=== PATIENT | female | born 1995 | race Caucasian/White ===

== ENCOUNTER 2019-01-04 23:25 | Inpatient (IN) | payer BC ==
[2019-01-04] MEDS ORDERED: Misoprostol 200 MCG Tab PO PRN (23:41)
[2019-01-04] MEDS ORDERED: Ondansetron 4 MG/2 ML SDV IVPUSH PRN (23:41)
[2019-01-04] MEDS ORDERED: Sodium Chloride 0.9% 10 ML SDV FLUSH PRN (23:41)
[2019-01-04] MEDS ORDERED: Lidocaine 1% 50 ML MDV INJECT PRN (23:41)
[2019-01-04] MEDS ORDERED: Sodium Chloride 0.9% 2.5 ML Syringe FLUSH PRN (23:41)
[2019-01-04] MEDS ORDERED: Sodium Chloride 0.9% 10 ML Syringe FLUSH PRN (23:41)
[2019-01-04] MEDS ORDERED: Carboprost Tromethamine 250 MCG/1 ML Amp IM PRN (23:41)
[2019-01-04] MEDS ORDERED: Water For Irrigation,Sterile 1,000 ML Container IRR PRN (23:41)
[2019-01-04] MEDS ORDERED: Methylergonovine 0.2 MG/1 ML Amp IM PRN (23:41)
[2019-01-04] MEDS ORDERED: Tranexamic Acid 1,000 MG in Sodium Chloride 0.9% 100 ML IV PRN (23:41)
[2019-01-04] MEDS ORDERED: Oxytocin/0.9 % Sodium Chloride 30 UNIT/500 ML BAG IV SCH ×2 (23:45)
[2019-01-04] MEDS ORDERED: Terbutaline 1 MG/ML SDV SUBCUT PRN (23:45)
[2019-01-05] MEDS: Misoprostol 25 MCG (1/4 of 100 MCG) Tab VAG PRN ×2 (00:24→04:32)
[2019-01-05] MEDS: Lactated Ringers 1,000 ML IV SCH ×3 (04:48→19:15)
[2019-01-05] MEDS: Butorphanol 1 MG/ML SDV IVPUSH PRN ×2 (06:53→08:43)
--- NOTE | 2019-01-05 09:21 | PCM.PREANE ---
Preanesthetic Assessment - Anesthesia/Transfusion/Family Hx Anesthesia History: Prior Anesthesia Without Reaction Family History of Anesthesia Reaction: No Transfusion History: No Prior Transfusion(s) Type of Transfusion Reactions: Reports: Unknown - Review of Systems General: No Symptoms Pulmonary: No Symptoms Cardiovascular: No Symptoms Gastrointestinal: No Symptoms Neurological: No Symptoms Other: Reports: None - Physical Assessment Height: 5 ft 6 in Weight: 119.295 kg ASA Class: 2 Mental Status: Alert & Oriented x3 Airway Class: Mallampati = 2 Dentition: Reports: Normal Dentition Thyro-Mental Finger Breadths: 3 Mouth Opening Finger Breadths: 3 ROM/Head Extension: Full Lungs: Clear to Auscultation, Normal Respiratory Effort Cardiovascular: Regular Rate, Regular Rhythm - Lab Values: Laboratory Last Values WBC 12.65 K/uL (4.0-11.0) H 01/05/19 00:10 RBC 4.21 M/uL (4.30-5.90) L 01/05/19 00:10 Hgb 11.3 g/dL (12.0-16.0) L 01/05/19 00:10 Hct 34.2 % (36.0-46.0) L 01/05/19 00:10 MCV 81.2 fL (80.0-98.0) 01/05/19 00:10 MCH 26.8 pg (27.0-32.0) L 01/05/19 00:10 MCHC 33.0 g/dL (31.0-37.0) 01/05/19 00:10 RDW Std Deviation 40.2 fl (28.0-62.0) 01/05/19 00:10 RDW Coeff of Stephen 14 % (11.0-15.0) 01/05/19 00:10 Plt Count 254 K/uL (150-400) 01/05/19 00:10 MPV 11.60 fL (7.40-12.00) 01/05/19 00:10 Nucleated RBC % 0.0 /100WBC 01/05/19 00:10 Nucleated RBCs # 0 K/uL 01/05/19 00:10 Blood Type A POSITIVE 01/05/19 00:10 Antibody Screen NEGATIVE 01/05/19 00:10 - Allergies Allergies/Adverse Reactions: Allergies Allergy/AdvReac Type Severity Reaction Status Date / Time No Known Allergies Allergy Verified 01/04/19 23:39 - Acknowledgements Anesthesia Type Planned: Epidural Pt an Appropriate Candidate for the Planned Anesthesia: Yes Alternatives and Risks of Anesthesia Discussed w Pt/Guardian: Yes Pt/Guardian Understands and Agrees with Anesthesia Plan: Yes PreAnesthesia Questionnaire HEENT History: Reports: None Cardiovascular History: Reports: Hypertension Respiratory History: Reports: None Gastrointestinal History: Reports: GERD Genitourinary History: Reports: None [employer] History: Reports: : 1 Para: 0 LMP (Approximate): Musculoskeletal History: Reports: None Neurological History: Reports: None Psychiatric History: Reports: None Endocrine/Metabolic History: Reports: Obesity/BMI 30+ Hematologic History: Reports: Anemia Immunologic History: Reports: None Oncologic (Cancer) History: Reports: None Dermatologic History: Reports: None - Infectious Disease History Infectious Disease History: Reports: Chicken Pox - Past Surgical History Head Surgeries/Procedures: Reports: None HEENT Surgical History: Reports: None Cardiovascular Surgical History: Reports: None Respiratory Surgical History: Reports: None GI Surgical History: Reports: None Female Surgical History: Reports: None Endocrine Surgical History: Reports: None Neurological Surgical History: Reports: None Oncologic Surgical History: Reports: None Dermatological Surgical History: Reports: None - SUBSTANCE USE Smoking Status *Q: Never Smoker Recreational Drug Use History: No - HOME MEDS Home Medications: Home Meds Acetaminophen [Tylenol] 325 mg PO 01/04/19 [History] PNV #116/Iron Fumarate/FA/DHA [Expecta Combo Pack] 01/04/19 [History] - CURRENT (IN HOUSE) MEDS Current Meds: Current Medications Butorphanol Tartrate (Stadol) 1 mg IVPUSH Q1H PRN PRN Reason: Pain Last Admin: 01/05/19 08:43 Dose: 1 mg Carboprost Tromethamine (Hemabate Ds) 250 mcg IM ASDIRECTED PRN PRN Reason: Post Hemorrhage Lactated Ringer's (Ringers, Lactated) 1,000 mls @ 150 mls/hr IV ASDIRECTED NEY Last Admin: 01/05/19 04:48 Dose: 150 mls/hr Oxytocin/Sodium Chloride (Oxytocin 30 Unit/500 Ml-Ns) 30 unit in 500 mls @ 999 mls/hr IV TITRATE NEY Oxytocin/Sodium Chloride (Oxytocin 30 Unit/500 Ml-Ns) 30 unit in 500 mls @ 2 mls/hr IV TITRATE NEY; Protocol Last Titration: 01/05/19 07:03 Dose: 10 munits/min, 10 mls/hr Tranexamic Acid 1,000 mg/ (Sodium Chloride) 110 mls @ 660 mls/hr IV ONETIME PRN PRN Reason: Bleeding Lidocaine HCl (Xylocaine 1%) 50 ml INJECT ONETIME PRN PRN Reason: Laceration repair Methylergonovine Maleate (Methergine) 0.2 mg IM ASDIRECTED PRN PRN Reason: Post Hemorrhage Misoprostol (Cytotec) 200 mcg PO ONETIME PRN PRN Reason: Post Hemorrhage Misoprostol (Cytotec) 25 mcg VAG Q4H PRN PRN Reason: Cervical Ripening Last Admin: 01/05/19 00:24 Dose: 25 mcg Ondansetron HCl (Zofran) 4 mg IVPUSH Q6H PRN PRN Reason: Nausea/Vomiting Sodium Chloride (Saline Flush) 10 ml FLUSH ASDIRECTED PRN PRN Reason: Keep Vein Open Sodium Chloride (Saline Flush) 2.5 ml FLUSH ASDIRECTED PRN PRN Reason: Keep Vein Open Sodium Chloride (Normal Saline) 10 ml FLUSH ASDIRECTED PRN PRN Reason: IV Use Sterile Water (Sterile Water For Irrigation) 1,000 ml IRR ASDIRECTED PRN PRN Reason: delivery Terbutaline Sulfate (Brethine) 0.25 mg SUBCUT ASDIRECTED PRN PRN Reason: Tacysystole
[2019-01-05] MEDS ORDERED: Labetalol 20 MG/4 ML Syringe IVPUSH ONE (09:27)
[2019-01-05] MEDS ORDERED: Magnesium Sulfate/Water 4 GM in Premix Bag 1 BAG IV ONE (10:10)
[2019-01-05] MEDS ORDERED: Calcium Gluconate 10% 1 GM/10 ML SDV IV PRN (10:10)
[2019-01-05] MEDS ORDERED: Magnesium Sulfate/Water 20 GM/500 ML BAG IV SCH (11:00)
[2019-01-05 11:36] LABS: CHLORIDE,CL 105 mmol/L (98-107); SODIUM,NA 139 mmol/L (136-145)
[2019-01-05] MEDS ORDERED: Bupivacaine 0.25% 10 ML SDV ONE (19:06)
[2019-01-05] MEDS ORDERED: Acetaminophen 500 MG Tab PO PRN ×2 (22:33)
[2019-01-05] MEDS ORDERED: Benzocaine/Menthol 20%-0.5% Spray 78 GM Cannister TOP PRN (22:33)
[2019-01-05] MEDS ORDERED: Sodium Chloride 0.9% 10 ML SDV IV PRN (22:33)
[2019-01-05] MEDS ORDERED: Bisacodyl 10 MG Supp RECTAL PRN (22:33)
[2019-01-05] MEDS ORDERED: Docusate Sodium 100 MG Cap PO PRN (22:33)
[2019-01-05] MEDS ORDERED: Calcium Gluconate 10% 1 GM/10 ML SDV IVPUSH PRN (22:33)
[2019-01-05] MEDS ORDERED: Sodium Chloride 0.9% 10 ML Syringe FLUSH PRN (22:33)
[2019-01-05] MEDS ORDERED: Lanolin 100% Cream 7 GM Tube TOP PRN (22:33)
[2019-01-05] MEDS ORDERED: Sodium Chloride 0.9% 2.5 ML Syringe FLUSH PRN (22:33)
[2019-01-05] MEDS ORDERED: Witch Hazel Medicated Pads 40/Jar TOP PRN (22:33)
[2019-01-05] MEDS ORDERED: Lactated Ringers 1,000 ML IV SCH (22:45)
--- NOTE | 2019-01-06 08:11 | PCM48HPAN ---
Post Anesthesia Note - EVALUATION WITHIN 48HRS OF ANESTHETIC Vital Signs in Normal Range: Yes Patient Participated in Evaluation: Yes Respiratory Function Stable: Yes Airway Patent: Yes Cardiovascular Function Stable: Yes Hydration Status Stable: Yes Pain Control Satisfactory: Yes Nausea and Vomiting Control Satisfactory: Yes Mental Status Recovered: Yes Resp Rate: 18
[2019-01-06] MEDS: Enoxaparin 40 MG/0.4 ML Syringe SUBCUT SCH (09:29)
[2019-01-06] MEDS: Magnesium Sulfate/Water 20 GM/500 ML BAG IV SCH ×2 (09:48→20:15)
--- NOTE | 2019-01-06 11:15 | PCM.DEL ---
L & D Note - General Info Date of Service: 01/05/19 - Delivery Note Cervical Ripening Method: Misoprostil, Other (see below) (Labor induction by Dr Colvin. Please see her documentation.) Delivery Outcome: Livebirth Delivery Method: Spontaneous Vaginal Delivery-Single Infant Delivery Mode: Spontaneous Presentation: Right Occiput Posterior (ROP) Nuchal Cord: Present, Reduced (Loose nuchal cord x2. Unraveled at deliery.) Anesthesia Type: Epidural Amniotic Fluid Description: Clear Episiotomy Type: None Laceration: 2nd Degree Suture type: Vicryl Suture size: 3-0 (3-0 and 4-0 Vicryl used for repair.) Placenta: Intact, Spontaneous Estimated Blood Loss: 250 Resuscitation Needed: No Provider: keyla (Dr Colvin) Post Delivery Events: Other (see below) (Mag sulfate prior to delivery due to pre-eclampsia with severe features, and continued post-.) Delivery Comments (Free Text/Narrative):: See trace view for more information. - General Info Date of Service: 01/05/19 - Patient Data Vitals - Most Recent: Last Vital Signs Temp 36.9 C 01/06/19 06:00 Pulse 104 H 01/06/19 07:00 Resp 18 01/06/19 08:11 BP 132/63 01/06/19 07:00 Pulse Ox 98 01/06/19 07:00 Weight - Most Recent: 119.295 kg I&O - Last 24 Hours: Intake & Output 01/05/19 01/06/19 01/06/19 22:59 06:59 14:59 Intake Total 0 210 30 Output Total 88 1515 260 Balance -88 -1305 -230 Lab Results Last 24 Hours: Laboratory Results - last 24 hr 01/05/19 01/05/19 01/05/19 Range/Units 10:35 10:35 16:50 WBC 14.34 H (4.0-11.0) K/uL RBC 4.28 L (4.30-5.90) M/uL Hgb 11.2 L (12.0-16.0) g/dL Hct 34.7 L (36.0-46.0) % MCV 81.1 (80.0-98.0) fL MCH 26.2 L (27.0-32.0) pg MCHC 32.3 (31.0-37.0) g/dL RDW Std Deviation 40.6 (28.0-62.0) fl RDW Coeff of Stephen 14 (11.0-15.0) % Plt Count 250 (150-400) K/uL MPV 12.40 H (7.40-12.00) fL Nucleated RBC % 0.0 /100WBC Nucleated RBCs # 0 K/uL Sodium 139 (136-145) mmol/L Potassium 3.7 (3.5-5.1) mmol/L Chloride 105 (98-107) mmol/L Carbon Dioxide 22.6 (21.0-32.0) mmol/L BUN 11 (7.0-18.0) mg/dL Creatinine 0.7 (0.6-1.0) mg/dL Est Cr Clr Drug Dosing 118.01 mL/min Estimated GFR (MDRD) > 60.0 ml/min Glucose 99 (74-106) mg/dL Uric Acid 4.5 (2.6-7.2) mg/dL Calcium 8.7 (8.5-10.1) mg/dL Magnesium 1.5 L 3.9 H (1.8-2.4) mg/dL Total Bilirubin 0.2 (0.2-1.0) mg/dL AST 14 L (15-37) IU/L ALT 13 L (14-63) IU/L Alkaline Phosphatase 123 H (46-116) U/L Total Protein 6.8 (6.4-8.2) g/dL Albumin 2.0 L (3.4-5.0) g/dL Globulin 4.8 H (2.6-4.0) g/dL Albumin/Globulin Ratio 0.4 L (0.9-1.6) 01/05/19 01/06/19 Range/Units 23:36 05:44 WBC (4.0-11.0) K/uL RBC (4.30-5.90) M/uL Hgb (12.0-16.0) g/dL Hct (36.0-46.0) % MCV (80.0-98.0) fL MCH (27.0-32.0) pg MCHC (31.0-37.0) g/dL RDW Std Deviation (28.0-62.0) fl RDW Coeff of Stephen (11.0-15.0) % Plt Count (150-400) K/uL MPV (7.40-12.00) fL Nucleated RBC % /100WBC Nucleated RBCs # K/uL Sodium (136-145) mmol/L Potassium (3.5-5.1) mmol/L Chloride (98-107) mmol/L Carbon Dioxide (21.0-32.0) mmol/L BUN (7.0-18.0) mg/dL Creatinine (0.6-1.0) mg/dL Est Cr Clr Drug Dosing mL/min Estimated GFR (MDRD) ml/min Glucose (74-106) mg/dL Uric Acid (2.6-7.2) mg/dL Calcium (8.5-10.1) mg/dL Magnesium 4.5 H 4.6 H (1.8-2.4) mg/dL Total Bilirubin (0.2-1.0) mg/dL AST (15-37) IU/L ALT (14-63) IU/L Alkaline Phosphatase (46-116) U/L Total Protein (6.4-8.2) g/dL Albumin (3.4-5.0) g/dL Globulin (2.6-4.0) g/dL Albumin/Globulin Ratio (0.9-1.6) Med Orders - Current: Current Medications Acetaminophen (Tylenol Extra Strength) 500 mg PO Q4H PRN PRN Reason: Pain Acetaminophen (Tylenol Extra Strength) 1,000 mg PO Q4H PRN PRN Reason: Pain Last Admin: 01/06/19 09:28 Dose: 1,000 mg Benzocaine/Menthol (Dermoplast Pain Relief 20%-0.5% Norphlet) 78 gm TOP ASDIRECTED PRN PRN Reason: Perineal Comfort Measure Last Admin: 01/06/19 08:23 Dose: 1 can Bisacodyl (Dulcolax) 10 mg RECTAL ONETIME PRN PRN Reason: Constipation Calcium Gluconate (Calcium Gluconate) 1 gm IVPUSH ASDIRECTED PRN PRN Reason: respiratory distress Docusate Sodium (Colace) 100 mg PO BID PRN PRN Reason: Constipation Emollient Ointment (Lansinoh Hpa) 0 gm TOP ASDIRECTED PRN PRN Reason: Sore Nipples Enoxaparin Sodium (Lovenox) 40 mg SUBCUT Q24H [facility] Last Admin: 01/06/19 09:29 Dose: 40 mg Lactated Ringer's (Ringers, Lactated) 1,000 mls @ 30 mls/hr IV ASDIRECTED NEY Magnesium Sulfate (Magnesium Sulfate 20 Gm In Water 500 Ml) 20 gm in 500 mls @ 50 mls/hr IV ASDIRECTED NEY Last Admin: 01/06/19 09:48 Dose: 2 gm/hr, 50 mls/hr Sodium Chloride (Saline Flush) 10 ml FLUSH ASDIRECTED PRN PRN Reason: Keep Vein Open Sodium Chloride (Saline Flush) 2.5 ml FLUSH ASDIRECTED PRN PRN Reason: Keep Vein Open Sodium Chloride (Normal Saline) 10 ml IV ASDIRECTED PRN PRN Reason: IV Use Witch Anuradha (Tucks) 1 pad TOP ASDIRECTED PRN PRN Reason: comfort care Last Admin: 01/06/19 08:22 Dose: 1 tub Discontinued Medications Bupivacaine HCl (Sensorcaine-Mpf 0.25%) Confirm Administered Dose 10 ml .ROUTE .[facility]-MED ONE Stop: 01/05/19 19:07 Butorphanol Tartrate (Stadol) 1 mg IVPUSH Q1H PRN PRN Reason: Pain Last Admin: 01/05/19 08:43 Dose: 1 mg Calcium Gluconate (Calcium Gluconate) 1 gm IV ASDIRECTED PRN PRN Reason: respiratory distress Carboprost Tromethamine (Hemabate Ds) 250 mcg IM ASDIRECTED PRN PRN Reason: Post Hemorrhage Enoxaparin Sodium (Lovenox) 40 mg SUBCUT Q24H [facility] Lactated Ringer's (Ringers, Lactated) 1,000 mls @ 150 mls/hr IV ASDIRECTED [facility] Last Admin: 01/05/19 19:15 Dose: 30 mls/hr Oxytocin/Sodium Chloride (Oxytocin 30 Unit/500 Ml-Ns) 30 unit in 500 mls @ 999 mls/hr IV TITRATE [facility] Last Admin: 01/05/19 22:10 Dose: 999 mls/hr Oxytocin/Sodium Chloride (Oxytocin 30 Unit/500 Ml-Ns) 30 unit in 500 mls @ 2 mls/hr IV TITRATE [facility]; Protocol Last Titration: 01/05/19 22:10 Dose: 0 munits/min, 0 mls/hr Tranexamic Acid 1,000 mg/ (Sodium Chloride) 110 mls @ 660 mls/hr IV ONETIME PRN PRN Reason: Bleeding Fentanyl/Bupivacaine HCl ([id number]-[id number]-Rn 2 Mcg/Ml-0.125%) Confirm Administered Dose 100 mls @ as directed .ROUTE .[facility]-MED ONE Stop: 01/05/19 09:24 Magnesium Sulfate 4 gm/ Premix 100 mls @ 300 mls/hr IV BOLUS ONE Stop: 01/05/19 10:29 Last Admin: 01/05/19 11:47 Dose: 300 mls/hr Magnesium Sulfate (Magnesium Sulfate 20 Gm In Water 500 Ml) 20 gm in 500 mls @ 50 mls/hr IV ASDIRECTED NEY; Protocol Fentanyl/Bupivacaine HCl (Syjohbmw-Rzczr-Hk 2 Mcg/Ml-0.125%) Confirm Administered Dose 100 mls @ as directed .ROUTE .[facility]-MED ONE Stop: 01/05/19 19:06 Labetalol HCl (Normodyne) 20 mg IVPUSH ONETIME ONE; Protocol Stop: 01/05/19 09:28 Lidocaine HCl (Xylocaine 1%) 50 ml INJECT ONETIME PRN PRN Reason: Laceration repair Methylergonovine Maleate (Methergine) 0.2 mg IM ASDIRECTED PRN PRN Reason: Post Hemorrhage Misoprostol (Cytotec) 200 mcg PO ONETIME PRN PRN Reason: Post Hemorrhage Misoprostol (Cytotec) 25 mcg VAG Q4H PRN PRN Reason: Cervical Ripening Last Admin: 01/05/19 00:24 Dose: 25 mcg Ondansetron HCl (Zofran) 4 mg IVPUSH Q6H PRN PRN Reason: Nausea/Vomiting Sodium Chloride (Saline Flush) 10 ml FLUSH ASDIRECTED PRN PRN Reason: Keep Vein Open Sodium Chloride (Saline Flush) 2.5 ml FLUSH ASDIRECTED PRN PRN Reason: Keep Vein Open Sodium Chloride (Normal Saline) 10 ml FLUSH ASDIRECTED PRN PRN Reason: IV Use Sterile Water (Sterile Water For Irrigation) 1,000 ml IRR ASDIRECTED PRN PRN Reason: delivery Terbutaline Sulfate (Brethine) 0.25 mg SUBCUT ASDIRECTED PRN PRN Reason: Tacysystole - Problem List Review Problem List Initiated/Reviewed/Updated: No - My Orders Last 24 Hours: My Active Orders 01/05/19 22:33 Bedrest Bathroom Privileges [RC] ASDIRECTED RT Incentive Spirometry [RC] Q1HWA Vital Signs [RC] Q30M Acetaminophen [Tylenol Extra Strength] 1,000 mg PO Q4H PRN Acetaminophen [Tylenol Extra Strength] 500 mg PO Q4H PRN Benzocaine/Menthol [Dermoplast Pain Relief 20%-0.5% Norphlet] 78 gm TOP ASDIRECTED PRN Bisacodyl [Dulcolax] 10 mg RECTAL ONETIME PRN Calcium Gluconate 1 gm IVPUSH ASDIRECTED PRN Docusate Sodium [Colace] 100 mg PO BID PRN Lanolin [Lansinoh HPA] See Dose Instructions TOP ASDIRECTED PRN Sodium Chloride 0.9% [Normal Saline] 10 ml IV ASDIRECTED PRN Sodium Chloride 0.9% [Saline Flush] 10 ml FLUSH ASDIRECTED PRN Sodium Chloride 0.9% [Saline Flush] 2.5 ml FLUSH ASDIRECTED PRN Witch Anuradha [Tucks] 1 pad TOP ASDIRECTED PRN Resuscitation Status Routine 01/05/19 22:34 Patient Status [ADT] Routine Patient Status [ADT] Routine Communication Order [RC] PRN Communication Order [RC] PRN Height and Weight [RC] DAILY Intake and Output [RC] Q1HR Notify Provider [RC] PRN Oxygen Therapy [RC] PRN Assess Lochia [WOMSER] Per Unit Routine Assess Uterine Involution [WOMSER] Per Unit Routine Peripheral IV Insertion Adult [OM.PC] Routine 01/05/19 22:45 Lactated Ringers [Ringers, Lactated] 1,000 ml IV ASDIRECTED Magnesium Sulfate/Water [Magnesium Sulfate 20 GM in Water 500 ML] 20 gm in 500 ml IV ASDIRECTED Deep Tendon Reflexes [WOMSER] Q1H 01/05/19 22:54 Equipment to Bedside [RC] PRN 01/05/19 22:56 Notify Provider Status Change [RC] ASDIRECTED 01/05/19 23:13 Antiembolic Devices [RC] PER UNIT ROUTINE Sequential Compression Device [OM.PC] Routine 01/05/19 23:45 Deep Tendon Reflexes [WOMSER] Q1 01/05/19 Dinner Clear Liquid Diet [DIET] 01/06/19 00:00 Vital Signs [RC] [facility] 01/06/19 00:45 Deep Tendon Reflexes [WOMSER] [facility] 01/06/19 01:45 Deep Tendon Reflexes [WOMSER] [facility] 01/06/19 02:45 Deep Tendon Reflexes [WOMSER] [facility] 01/06/19 03:45 Deep Tendon Reflexes [WOMSER] [facility] 01/06/19 04:45 Deep Tendon Reflexes [WOMSER] [facility] 01/06/19 05:45 Deep Tendon Reflexes [WOMSER] [facility] 01/06/19 06:45 Deep Tendon Reflexes [WOMSER] [facility] 01/06/19 07:45 Deep Tendon Reflexes [WOMSER] [facility] 01/06/19 08:33 Enoxaparin [Lovenox] 40 mg SUBCUT Q24H 01/06/19 08:45 Deep Tendon Reflexes [WOMSER] [facility] 01/06/19 09:45 Deep Tendon Reflexes [WOMSER] [facility] 01/06/19 10:45 MAGNESIUM [CHEM] Q6H Deep Tendon Reflexes [WOMSER] [facility] 01/06/19 11:45 Deep Tendon Reflexes [WOMSER] [facility] 01/06/19 12:45 Deep Tendon Reflexes [WOMSER] [facility] 01/06/19 13:45 Deep Tendon Reflexes [WOMSER] [facility] 01/06/19 14:45 Deep Tendon Reflexes [WOMSER] [facility] 01/06/19 15:45 Deep Tendon Reflexes [WOMSER] [facility] 01/06/19 16:45 MAGNESIUM [CHEM] Q6H Deep Tendon Reflexes [WOMSER] [facility] 01/06/19 17:45 Deep Tendon Reflexes [WOMSER] [facility] 01/06/19 18:45 Deep Tendon Reflexes [WOMSER] [facility] 01/06/19 19:45 Deep Tendon Reflexes [WOMSER] [facility] 01/06/19 20:45 Deep Tendon Reflexes [WOMSER] [facility] 01/06/19 21:45 Deep Tendon Reflexes [WOMSER] [facility] 01/06/19 22:45 MAGNESIUM [CHEM] Q6H 01/06/19 Breakfast BRAT Diet [DIET]
--- NOTE | 2019-01-06 11:25 | PCM.PN ---
- General Info Date of Service: 01/06/19 (PPD#1, NSVA. Pre-eclampsia with severe features by BP criteria.) Functional Status: Reports: Pain Controlled - Review of Systems General: Reports: No Symptoms, Other (Pt feels well. No c/o.) Pulmonary: Reports: No Symptoms Gastrointestinal: Reports: No Symptoms Genitourinary: Reports: No Symptoms Musculoskeletal: Reports: No Symptoms - Patient Data Vitals - Most Recent: Last Vital Signs Temp 36.9 C 01/06/19 06:00 Pulse 104 H 01/06/19 07:00 Resp 18 01/06/19 08:11 BP 132/63 01/06/19 07:00 Pulse Ox 98 01/06/19 07:00 Weight - Most Recent: 119.295 kg I&O - Last 24 Hours: Intake & Output 01/05/19 01/06/19 01/06/19 22:59 06:59 14:59 Intake Total 0 210 30 Output Total 88 1515 260 Balance -04 -2765 -230 Lab Results Last 24 Hours: Laboratory Results - last 24 hr 01/05/19 01/05/19 01/05/19 Range/Units 10:35 10:35 16:50 WBC 14.34 H (4.0-11.0) K/uL RBC 4.28 L (4.30-5.90) M/uL Hgb 11.2 L (12.0-16.0) g/dL Hct 34.7 L (36.0-46.0) % MCV 81.1 (80.0-98.0) fL MCH 26.2 L (27.0-32.0) pg MCHC 32.3 (31.0-37.0) g/dL RDW Std Deviation 40.6 (28.0-62.0) fl RDW Coeff of Stephen 14 (11.0-15.0) % Plt Count 250 (150-400) K/uL MPV 12.40 H (7.40-12.00) fL Nucleated RBC % 0.0 /100WBC Nucleated RBCs # 0 K/uL Sodium 139 (136-145) mmol/L Potassium 3.7 (3.5-5.1) mmol/L Chloride 105 (98-107) mmol/L Carbon Dioxide 22.6 (21.0-32.0) mmol/L BUN 11 (7.0-18.0) mg/dL Creatinine 0.7 (0.6-1.0) mg/dL Est Cr Clr Drug Dosing 118.01 mL/min Estimated GFR (MDRD) > 60.0 ml/min Glucose 99 (74-106) mg/dL Uric Acid 4.5 (2.6-7.2) mg/dL Calcium 8.7 (8.5-10.1) mg/dL Magnesium 1.5 L 3.9 H (1.8-2.4) mg/dL Total Bilirubin 0.2 (0.2-1.0) mg/dL AST 14 L (15-37) IU/L ALT 13 L (14-63) IU/L Alkaline Phosphatase 123 H (46-116) U/L Total Protein 6.8 (6.4-8.2) g/dL Albumin 2.0 L (3.4-5.0) g/dL Globulin 4.8 H (2.6-4.0) g/dL Albumin/Globulin Ratio 0.4 L (0.9-1.6) 01/05/19 01/06/19 Range/Units 23:36 05:44 WBC (4.0-11.0) K/uL RBC (4.30-5.90) M/uL Hgb (12.0-16.0) g/dL Hct (36.0-46.0) % MCV (80.0-98.0) fL MCH (27.0-32.0) pg MCHC (31.0-37.0) g/dL RDW Std Deviation (28.0-62.0) fl RDW Coeff of Stephen (11.0-15.0) % Plt Count (150-400) K/uL MPV (7.40-12.00) fL Nucleated RBC % /100WBC Nucleated RBCs # K/uL Sodium (136-145) mmol/L Potassium (3.5-5.1) mmol/L Chloride (98-107) mmol/L Carbon Dioxide (21.0-32.0) mmol/L BUN (7.0-18.0) mg/dL Creatinine (0.6-1.0) mg/dL Est Cr Clr Drug Dosing mL/min Estimated GFR (MDRD) ml/min Glucose (74-106) mg/dL Uric Acid (2.6-7.2) mg/dL Calcium (8.5-10.1) mg/dL Magnesium 4.5 H 4.6 H (1.8-2.4) mg/dL Total Bilirubin (0.2-1.0) mg/dL AST (15-37) IU/L ALT (14-63) IU/L Alkaline Phosphatase (46-116) U/L Total Protein (6.4-8.2) g/dL Albumin (3.4-5.0) g/dL Globulin (2.6-4.0) g/dL Albumin/Globulin Ratio (0.9-1.6) Med Orders - Current: Current Medications Acetaminophen (Tylenol Extra Strength) 500 mg PO Q4H PRN PRN Reason: Pain Acetaminophen (Tylenol Extra Strength) 1,000 mg PO Q4H PRN PRN Reason: Pain Last Admin: 01/06/19 09:28 Dose: 1,000 mg Benzocaine/Menthol (Dermoplast Pain Relief 20%-0.5% [place]) 78 gm TOP ASDIRECTED PRN PRN Reason: Perineal Comfort Measure Last Admin: 01/06/19 08:23 Dose: 1 can Bisacodyl (Dulcolax) 10 mg RECTAL ONETIME PRN PRN Reason: Constipation Calcium Gluconate (Calcium Gluconate) 1 gm IVPUSH ASDIRECTED PRN PRN Reason: respiratory distress Docusate Sodium (Colace) 100 mg PO BID PRN PRN Reason: Constipation Emollient Ointment (Lansinoh Hpa) 0 gm TOP ASDIRECTED PRN PRN Reason: Sore Nipples Enoxaparin Sodium (Lovenox) 40 mg SUBCUT Q24H [facility] Last Admin: 01/06/19 09:29 Dose: 40 mg Lactated Ringer's (Ringers, Lactated) 1,000 mls @ 30 mls/hr IV ASDIRECTED [facility] Magnesium Sulfate (Magnesium Sulfate 20 Gm In Water 500 Ml) 20 gm in 500 mls @ 50 mls/hr IV ASDIRECTED [facility] Last Admin: 01/06/19 09:48 Dose: 2 gm/hr, 50 mls/hr Sodium Chloride (Saline Flush) 10 ml FLUSH ASDIRECTED PRN PRN Reason: Keep Vein Open Sodium Chloride (Saline Flush) 2.5 ml FLUSH ASDIRECTED PRN PRN Reason: Keep Vein Open Sodium Chloride (Normal Saline) 10 ml IV ASDIRECTED PRN PRN Reason: IV Use Witch Anuradha (Tucks) 1 pad TOP ASDIRECTED PRN PRN Reason: comfort care Last Admin: 01/06/19 08:22 Dose: 1 tub Discontinued Medications Bupivacaine HCl (Sensorcaine-Mpf 0.25%) Confirm Administered Dose 10 ml .ROUTE .STK-MED ONE Stop: 01/05/19 19:07 Butorphanol Tartrate (Stadol) 1 mg IVPUSH Q1H PRN PRN Reason: Pain Last Admin: 01/05/19 08:43 Dose: 1 mg Calcium Gluconate (Calcium Gluconate) 1 gm IV ASDIRECTED PRN PRN Reason: respiratory distress Carboprost Tromethamine (Hemabate Ds) 250 mcg IM ASDIRECTED PRN PRN Reason: Post Hemorrhage Enoxaparin Sodium (Lovenox) 40 mg SUBCUT Q24H NEY Lactated Ringer's (Ringers, Lactated) 1,000 mls @ 150 mls/hr IV ASDIRECTED NEY Last Admin: 01/05/19 19:15 Dose: 30 mls/hr Oxytocin/Sodium Chloride (Oxytocin 30 Unit/500 Ml-Ns) 30 unit in 500 mls @ 999 mls/hr IV TITRATE NEY Last Admin: 01/05/19 22:10 Dose: 999 mls/hr Oxytocin/Sodium Chloride (Oxytocin 30 Unit/500 Ml-Ns) 30 unit in 500 mls @ 2 mls/hr IV TITRATE NEY; Protocol Last Titration: 01/05/19 22:10 Dose: 0 munits/min, 0 mls/hr Tranexamic Acid 1,000 mg/ (Sodium Chloride) 110 mls @ 660 mls/hr IV ONETIME PRN PRN Reason: Bleeding Fentanyl/Bupivacaine HCl (Bmihlkzs-Psipe-Rq 2 Mcg/Ml-0.125%) Confirm Administered Dose 100 mls @ as directed .ROUTE .STK-MED ONE Stop: 01/05/19 09:24 Magnesium Sulfate 4 gm/ Premix 100 mls @ 300 mls/hr IV BOLUS ONE Stop: 01/05/19 10:29 Last Admin: 01/05/19 11:47 Dose: 300 mls/hr Magnesium Sulfate (Magnesium Sulfate 20 Gm In Water 500 Ml) 20 gm in 500 mls @ 50 mls/hr IV ASDIRECTED NEY; Protocol Fentanyl/Bupivacaine HCl (Ynuesxls-Bdyqh-Gx 2 Mcg/Ml-0.125%) Confirm Administered Dose 100 mls @ as directed .ROUTE .STK-MED ONE Stop: 01/05/19 19:06 Labetalol HCl (Normodyne) 20 mg IVPUSH ONETIME ONE; Protocol Stop: 01/05/19 09:28 Lidocaine HCl (Xylocaine 1%) 50 ml INJECT ONETIME PRN PRN Reason: Laceration repair Methylergonovine Maleate (Methergine) 0.2 mg IM ASDIRECTED PRN PRN Reason: Post Hemorrhage Misoprostol (Cytotec) 200 mcg PO ONETIME PRN PRN Reason: Post Hemorrhage Misoprostol (Cytotec) 25 mcg VAG Q4H PRN PRN Reason: Cervical Ripening Last Admin: 01/05/19 00:24 Dose: 25 mcg Ondansetron HCl (Zofran) 4 mg IVPUSH Q6H PRN PRN Reason: Nausea/Vomiting Sodium Chloride (Saline Flush) 10 ml FLUSH ASDIRECTED PRN PRN Reason: Keep Vein Open Sodium Chloride (Saline Flush) 2.5 ml FLUSH ASDIRECTED PRN PRN Reason: Keep Vein Open Sodium Chloride (Normal Saline) 10 ml FLUSH ASDIRECTED PRN PRN Reason: IV Use Sterile Water (Sterile Water For Irrigation) 1,000 ml IRR ASDIRECTED PRN PRN Reason: delivery Terbutaline Sulfate (Brethine) 0.25 mg SUBCUT ASDIRECTED PRN PRN Reason: Tacysystole Comments:: BPs highest SBP 140s since delivery. At times, pulse is slightly high, and seems to respond well to vigorous incentive spirometry. Pt showing excellent diuresis currently. - Exam General: Alert, Oriented, Cooperative, No Acute Distress Neck: Supple Lungs: Other (Breathing easily, non=labored.) GI/Abdominal Exam: Other (Abdomen soft, obese. Uterus palpates firm.) Extremities: Normal Inspection, Non-Tender (No evidence of DVT.) - Problem List & Annotations (1) Vaginal delivery SNOMED Code(s): 123101682 Code(s): O80 - ENCOUNTER FOR FULL-TERM UNCOMPLICATED DELIVERY Status: Acute Current Visit: Yes (2) Pre-eclampsia, severe, delivered SNOMED Code(s): 017093327, 855230801 Code(s): O14.14 - SEVERE PRE-ECLAMPSIA COMPLICATING CHILDBIRTH Status: Acute Current Visit: Yes (3) Obesity SNOMED Code(s): 169241423, 145662000 Code(s): E66.9 - OBESITY, UNSPECIFIED Status: Acute Current Visit: Yes Qualifiers: Body mass index: unspecified BMI - Problem List Review Problem List Initiated/Reviewed/Updated: Yes - My Orders Last 24 Hours: My Active Orders 01/05/19 22:33 Bedrest Bathroom Privileges [RC] ASDIRECTED RT Incentive Spirometry [RC] Q1HWA Vital Signs [RC] Q30M Acetaminophen [Tylenol Extra Strength] 1,000 mg PO Q4H PRN Acetaminophen [Tylenol Extra Strength] 500 mg PO Q4H PRN Benzocaine/Menthol [Dermoplast Pain Relief 20%-0.5% [place]] 78 gm TOP ASDIRECTED PRN Bisacodyl [Dulcolax] 10 mg RECTAL ONETIME PRN Calcium Gluconate 1 gm IVPUSH ASDIRECTED PRN Docusate Sodium [Colace] 100 mg PO BID PRN Lanolin [Lansinoh HPA] See Dose Instructions TOP ASDIRECTED PRN Sodium Chloride 0.9% [Normal Saline] 10 ml IV ASDIRECTED PRN Sodium Chloride 0.9% [Saline Flush] 10 ml FLUSH ASDIRECTED PRN Sodium Chloride 0.9% [Saline Flush] 2.5 ml FLUSH ASDIRECTED PRN Witanthony Anuradha [Tucks] 1 pad TOP ASDIRECTED PRN Resuscitation Status Routine 01/05/19 22:34 Patient Status [ADT] Routine Patient Status [ADT] Routine Communication Order [RC] PRN Communication Order [RC] PRN Height and Weight [RC] DAILY Intake and Output [RC] Q1HR Notify Provider [RC] PRN Oxygen Therapy [RC] PRN Assess Lochia [WOMSER] Per Unit Routine Assess Uterine Involution [WOMSER] Per Unit Routine Peripheral IV Insertion Adult [OM.PC] Routine 01/05/19 22:45 Lactated Ringers [Ringers, Lactated] 1,000 ml IV ASDIRECTED Magnesium Sulfate/Water [Magnesium Sulfate 20 GM in Water 500 ML] 20 gm in 500 ml IV ASDIRECTED Deep Tendon Reflexes [WOMSER] Q1H 01/05/19 22:54 Equipment to Bedside [RC] PRN 01/05/19 22:56 Notify Provider Status Change [RC] ASDIRECTED 01/05/19 23:13 Antiembolic Devices [RC] PER UNIT ROUTINE Sequential Compression Device [OM.PC] Routine 01/05/19 23:45 Deep Tendon Reflexes [WOMSER] Q1H 01/05/19 Dinner Clear Liquid Diet [DIET] 01/06/19 00:00 Vital Signs [RC] Q1 01/06/19 00:45 Deep Tendon Reflexes [WOMSER] Q1 01/06/19 01:45 Deep Tendon Reflexes [WOMSER] [facility] 01/06/19 02:45 Deep Tendon Reflexes [WOMSER] [facility] 01/06/19 03:45 Deep Tendon Reflexes [WOMSER] [facility] 01/06/19 04:45 Deep Tendon Reflexes [WOMSER] [facility] 01/06/19 05:45 Deep Tendon Reflexes [WOMSER] [facility] 01/06/19 06:45 Deep Tendon Reflexes [WOMSER] [facility] 01/06/19 07:45 Deep Tendon Reflexes [WOMSER] [facility] 01/06/19 08:33 Enoxaparin [Lovenox] 40 mg SUBCUT Q24H 01/06/19 08:45 Deep Tendon Reflexes [WOMSER] [facility] 01/06/19 09:45 Deep Tendon Reflexes [WOMSER] [facility] 01/06/19 10:45 MAGNESIUM [CHEM] Q6H Deep Tendon Reflexes [WOMSER] [facility] 01/06/19 11:45 Deep Tendon Reflexes [WOMSER] Q1 01/06/19 12:45 Deep Tendon Reflexes [WOMSER] Q1 01/06/19 13:45 Deep Tendon Reflexes [WOMSER] [facility] 01/06/19 14:45 Deep Tendon Reflexes [WOMSER] Q1 01/06/19 15:45 Deep Tendon Reflexes [WOMSER] [facility] 01/06/19 16:45 MAGNESIUM [CHEM] Q6H Deep Tendon Reflexes [WOMSER] Q1 01/06/19 17:45 Deep Tendon Reflexes [WOMSER] Q1 01/06/19 18:45 Deep Tendon Reflexes [WOMSER] Q1H 01/06/19 19:45 Deep Tendon Reflexes [WOMSER] Q1H 01/06/19 20:45 Deep Tendon Reflexes [WOMSER] Q1H 01/06/19 21:45 Deep Tendon Reflexes [WOMSER] Q1H 01/06/19 22:45 MAGNESIUM [CHEM] Q6H 01/06/19 Breakfast BRAT Diet [DIET] - Assessment Assessment:: PPD#1 after IOL. Pre-eclampsia with severe features, mag sulfate given. Continue mag sulfate for 24 hours PP. Due to obesity, severe pre-eclampsia, relative inactivity for labor and through the use of mag sulfate, will use lovenox for prophylaxis or thromboembolism. 40 subcut q d while hospitalized.
[2019-01-06] MEDS ORDERED: Enoxaparin 40 MG/0.4 ML Syringe SUBCUT SCH (15:15)
[2019-01-07] MEDS: Enoxaparin 40 MG/0.4 ML Syringe SUBCUT SCH (08:03)
--- NOTE | 2019-01-07 10:06 | PCM.DCSUM1 ---
Discharge Summary - Hospital Course Free Text/Narrative:: PPD#2. , pre-eclampsia with severe features. Mag sulfate completed. BPs normal Vital normal. Lovenox for prophylaxis while hospitalized. Now ready for discharge. - Discharge Data Discharge Date: 01/07/19 Discharge Disposition: Home, Self-Care 01 Condition: Good - Discharge Diagnosis/Problem(s) (1) Vaginal delivery SNOMED Code(s): 429044923 ICD Code: O80 - ENCOUNTER FOR FULL-TERM UNCOMPLICATED DELIVERY Status: Acute Current Visit: Yes (2) Pre-eclampsia, severe, delivered SNOMED Code(s): 079192433, 989262139 ICD Code: O14.14 - SEVERE PRE-ECLAMPSIA COMPLICATING CHILDBIRTH Status: Acute Current Visit: Yes (3) Obesity SNOMED Code(s): 532805916, 822261253 ICD Code: E66.9 - OBESITY, UNSPECIFIED Status: Acute Current Visit: Yes Qualifiers: Obesity type: unspecified obesity type Serious obesity comorbidity presence : without serious comorbidity Body mass index: unspecified BMI - Patient Instructions Diet: Regular Diet as Tolerated Activity: As Tolerated (pelvic reast for 6 weeks) - Discharge Plan *PRESCRIPTION DRUG MONITORING PROGRAM REVIEWED*: Not Applicable Home Medications: Home Meds Acetaminophen [Tylenol] 325 mg PO 01/04/19 [History] PNV #116/Iron Fumarate/FA/DHA [Expecta Combo Pack] 01/04/19 [History] - Discharge Summary/Plan Comment DC Time >30 min.: No - General Info Date of Service: 01/07/19 Functional Status: Reports: Pain Controlled, Tolerating Diet, Ambulating, Urinating - Review of Systems General: Reports: No Symptoms Gastrointestinal: Reports: No Symptoms Genitourinary: Reports: No Symptoms Psychiatric: Reports: No Symptoms - Patient Data Vitals - Most Recent: Last Vital Signs Temp 36.7 C 01/07/19 07:39 Pulse 82 01/07/19 07:39 Resp 16 01/07/19 09:16 BP 121/75 01/07/19 07:39 Pulse Ox 95 01/07/19 07:39 Weight - Most Recent: 112.1 kg I&O - Last 24 hours: Intake & Output 01/06/19 01/07/19 01/07/19 22:59 06:59 14:59 Intake Total 210 100 Output Total 2018 331 7169 Balance -1120 0 -1300 Lab Results - Last 24 hrs: Laboratory Results - last 24 hr 01/06/19 01/06/19 01/06/19 Range/Units 11:50 16:41 22:45 Magnesium 5.7 H 5.7 H 5.8 H (1.8-2.4) mg/dL Med Orders - Current: Current Medications Acetaminophen (Tylenol Extra Strength) 500 mg PO Q4H PRN PRN Reason: Pain Acetaminophen (Tylenol Extra Strength) 1,000 mg PO Q4H PRN PRN Reason: Pain Last Admin: 01/06/19 09:28 Dose: 1,000 mg Benzocaine/Menthol (Dermoplast Pain Relief 20%-0.5% [place]) 78 gm TOP ASDIRECTED PRN PRN Reason: Perineal Comfort Measure Last Admin: 01/06/19 08:23 Dose: 1 can Bisacodyl (Dulcolax) 10 mg RECTAL ONETIME PRN PRN Reason: Constipation Calcium Gluconate (Calcium Gluconate) 1 gm IVPUSH ASDIRECTED PRN PRN Reason: respiratory distress Docusate Sodium (Colace) 100 mg PO BID PRN PRN Reason: Constipation Emollient Ointment (Lansinoh Hpa) 0 gm TOP ASDIRECTED PRN PRN Reason: Sore Nipples Enoxaparin Sodium (Lovenox) 40 mg SUBCUT Q24H NEY Last Admin: 01/07/19 08:03 Dose: 40 mg Sodium Chloride (Saline Flush) 10 ml FLUSH ASDIRECTED PRN PRN Reason: Keep Vein Open Sodium Chloride (Saline Flush) 2.5 ml FLUSH ASDIRECTED PRN PRN Reason: Keep Vein Open Sodium Chloride (Normal Saline) 10 ml IV ASDIRECTED PRN PRN Reason: IV Use Witch Anuradha (Tucks) 1 pad TOP ASDIRECTED PRN PRN Reason: comfort care Last Admin: 01/06/19 08:22 Dose: 1 tub Discontinued Medications Bupivacaine HCl (Sensorcaine-Mpf 0.25%) Confirm Administered Dose 10 ml .ROUTE .STK-MED ONE Stop: 01/05/19 19:07 Butorphanol Tartrate (Stadol) 1 mg IVPUSH Q1H PRN PRN Reason: Pain Last Admin: 01/05/19 08:43 Dose: 1 mg Calcium Gluconate (Calcium Gluconate) 1 gm IV ASDIRECTED PRN PRN Reason: respiratory distress Carboprost Tromethamine (Hemabate Ds) 250 mcg IM ASDIRECTED PRN PRN Reason: Post Hemorrhage Enoxaparin Sodium (Lovenox) 40 mg SUBCUT Q24H NEY Lactated Ringer's (Ringers, Lactated) 1,000 mls @ 150 mls/hr IV ASDIRECTED NEY Last Admin: 01/05/19 19:15 Dose: 30 mls/hr Oxytocin/Sodium Chloride (Oxytocin 30 Unit/500 Ml-Ns) 30 unit in 500 mls @ 999 mls/hr IV TITRATE NEY Last Admin: 01/05/19 22:10 Dose: 999 mls/hr Oxytocin/Sodium Chloride (Oxytocin 30 Unit/500 Ml-Ns) 30 unit in 500 mls @ 2 mls/hr IV TITRATE NEY; Protocol Last Titration: 01/05/19 22:10 Dose: 0 munits/min, 0 mls/hr Tranexamic Acid 1,000 mg/ (Sodium Chloride) 110 mls @ 660 mls/hr IV ONETIME PRN PRN Reason: Bleeding Fentanyl/Bupivacaine HCl (Tglalniq-Frupx-Rw 2 Mcg/Ml-0.125%) Confirm Administered Dose 100 mls @ as directed .ROUTE .STK-MED ONE Stop: 01/05/19 09:24 Magnesium Sulfate 4 gm/ Premix 100 mls @ 300 mls/hr IV BOLUS ONE Stop: 01/05/19 10:29 Last Admin: 01/05/19 11:47 Dose: 300 mls/hr Magnesium Sulfate (Magnesium Sulfate 20 Gm In Water 500 Ml) 20 gm in 500 mls @ 50 mls/hr IV ASDIRECTED ON LICENSE OF [facility]; Protocol Fentanyl/Bupivacaine HCl (Wkoxdztq-Vbdwx-Rg 2 Mcg/Ml-0.125%) Confirm Administered Dose 100 mls @ as directed .ROUTE .STK-MED ONE Stop: 01/05/19 19:06 Lactated Ringer's (Ringers, Lactated) 1,000 mls @ 30 mls/hr IV ASDIRECTED NEY Magnesium Sulfate (Magnesium Sulfate 20 Gm In Water 500 Ml) 20 gm in 500 mls @ 50 mls/hr IV ASDIRECTED NEY Stop: 01/06/19 23:00 Last Admin: 01/06/19 20:15 Dose: 2 gm/hr, 50 mls/hr Labetalol HCl (Normodyne) 20 mg IVPUSH ONETIME ONE; Protocol Stop: 01/05/19 09:28 Lidocaine HCl (Xylocaine 1%) 50 ml INJECT ONETIME PRN PRN Reason: Laceration repair Methylergonovine Maleate (Methergine) 0.2 mg IM ASDIRECTED PRN PRN Reason: Post Hemorrhage Misoprostol (Cytotec) 200 mcg PO ONETIME PRN PRN Reason: Post Hemorrhage Misoprostol (Cytotec) 25 mcg VAG Q4H PRN PRN Reason: Cervical Ripening Last Admin: 01/05/19 00:24 Dose: 25 mcg Ondansetron HCl (Zofran) 4 mg IVPUSH Q6H PRN PRN Reason: Nausea/Vomiting Sodium Chloride (Saline Flush) 10 ml FLUSH ASDIRECTED PRN PRN Reason: Keep Vein Open Sodium Chloride (Saline Flush) 2.5 ml FLUSH ASDIRECTED PRN PRN Reason: Keep Vein Open Sodium Chloride (Normal Saline) 10 ml FLUSH ASDIRECTED PRN PRN Reason: IV Use Sterile Water (Sterile Water For Irrigation) 1,000 ml IRR ASDIRECTED PRN PRN Reason: delivery Terbutaline Sulfate (Brethine) 0.25 mg SUBCUT ASDIRECTED PRN PRN Reason: Tacysystole - Exam General: Reports: Alert, Oriented, Cooperative, No Acute Distress Neck: Reports: Supple Lungs: Reports: Other (Breathing comfortably, non-labored) GI/Abdominal Exam: Soft, Non-Tender
== END 2019-01-07 13:10 | disposition home or self-care (01) | DRG 560 ==
LOC: MW.OBCHECK 23:25 → MW.OB 23:32 → UNDOADMOB 23:41 → MW.OBCHECK 23:41 → OBSVTOIN 01-05 21:59 → INTOOBSV 01-05 21:59 → OBSVTOIN 01-05 22:34 → MW.OB 01-05 22:34 → UNDODISIN 01-07 13:10
PROVIDERS: ADMIT Obstetrics & Gynecology; ATTEND Obstetrics & Gynecology
PROC: 0KQM0ZZ Repair Perineum Muscle, Open Approach (ICD-10-PCS; principal; 2019-01-05)
PROC: 10E0XZZ Delivery of Products of Conception, External Approach (ICD-10-PCS; principal; 2019-01-05)
PROC: 10H07YZ Insertion of Other Device into Products of Conception, Via Natural or Artificial Opening (ICD-10-PCS; 2019-01-05)
PROC: 3E0P7VZ Introduction of Hormone into Female Reproductive, Via Natural or Artificial Opening (ICD-10-PCS; 2019-01-05)
PROC: 3E033VJ Introduction of Other Hormone into Peripheral Vein, Percutaneous Approach (ICD-10-PCS; 2019-01-05)
PROC: 10907ZC Drainage of Amniotic Fluid, Therapeutic from Products of Conception, Via Natural or Artificial Opening (ICD-10-PCS; 2019-01-05)
PROC: 3E0R3BZ Introduction of Anesthetic Agent into Spinal Canal, Percutaneous Approach (ICD-10-PCS; 2019-01-05)
PROC: 00HU33Z Insertion of Infusion Device into Spinal Canal, Percutaneous Approach (ICD-10-PCS; 2019-01-05)
DX: O14.14 Severe pre-eclampsia complicating childbirth (principal); O99.214 Obesity complicating childbirth; E66.9 Obesity, unspecified; O40.3XX0 Polyhydramnios, third trimester, not applicable or unspecified; Z37.0 Single live birth; Z3A.37 37 weeks gestation of pregnancy; O64.0XX0 Obstructed labor due to incomplete rotation of fetal head, not applicable or unspecified; O69.81X0 Labor and delivery complicated by cord around neck, without compression, not applicable or unspecified; O70.1 Second degree perineal laceration during delivery; O99.62 Diseases of the digestive system complicating childbirth; K21.9 Gastro-esophageal reflux disease without esophagitis; O99.02 Anemia complicating childbirth; D64.9 Anemia, unspecified
CPT/HCPCS: 36415; 51702; 59025; 59409; 80053; 83735; 84550; 85027; 86850; 86900; 86901; A9270-GY; J0595; J1650; J2590; J3475; J3490; J7120